=== PATIENT | female | born 1985 | race Caucasian/White ===

== ENCOUNTER 2017-05-01 20:22 | Emergency (ER) | payer MEDICAID ==
[~2017-05-01] VITALS: Ht 170.2 cm; Wt 90.0 kg
[~2017-05-01 20:22] MED LIST: MACROBID PO; NO HOME MEDS; ONDA8TAB6 PO
[2017-05-01] MEDS ORDERED: PENI500T2 PO (22:18)
[2017-05-01 22:33] VITALS: BP 146/98
== END 2017-05-01 22:36 | disposition home or self-care (01) ==
LOC: ER 20:22
DX: S02.5XXA Fracture of tooth (traumatic), initial encounter for closed fracture (principal); X58.XXXA Exposure to other specified factors, initial encounter; Y93.9 Activity, unspecified; Y92.89 Other specified places as the place of occurrence of the external cause; Y99.8 Other external cause status; Z98.890 Other specified postprocedural states; Z56.0 Unemployment, unspecified
CPT/HCPCS: 99283

== ENCOUNTER 2017-06-13 13:17 | Emergency (ER) | payer MEDICAID ==
[~2017-06-13] VITALS: Ht 5619.3 cm; Wt 88.0 kg
[2017-06-13 14:43] LABS: CLARITY,URINE CLOUDY (Clear); COLOR,URINE YELLOW (Yellow); GLUCOSE, URINE NEGATIVE (Neg); KETONES,URINE NEGATIVE (Neg); LEUKOCYTE ESTERASE ,URINE MODERATE (Neg); NITRITES, URINE POSITIVE (Neg); OCCULT BLOOD,URINE SMALL (Neg); PROTEIN,URINE 100 mg/dl (Neg); URINE HCG NEGATIVE (NEG); UROBILINOGEN,URINE 0.2 E.U/dL (0.2-1.0)
[2017-06-13] MEDS ORDERED: NITR-79 PO (14:47)
[2017-06-13] MEDS ORDERED: PHEN-716 PO (14:47)
[2017-06-13 14:51] LABS: UA COLLECTION TYPE CLN CATCH MIDSTREAM
[2017-06-13 14:52] LABS: BACTERIA,URINE 3+ /HPF (Neg); RBC,URINE 0-2 /HPF (0-2); WBC,URINE 50-100 /HPF (0-4)
[2017-06-13 14:53] LABS: MUCUS STRANDS NONE SEEN /LPF (Neg); SQUAMOUS EPITHELIAL CELL,UR FEW /LPF (FEW)
[2017-06-13 18:25] VITALS: BP 121/65
== END 2017-06-13 15:00 | disposition home or self-care (01) ==
LOC: ER 13:17
DX: N39.0 Urinary tract infection, site not specified (principal); Z56.0 Unemployment, unspecified; Z79.899 Other long term (current) drug therapy
CPT/HCPCS: 81001; 81025; 87077; 87088; 87186; 99284

== ENCOUNTER 2018-08-27 11:31 | Emergency (ER) | payer MEDICAID ==
[~2018-08-27] VITALS: Ht 170.2 cm; Wt 83.0 kg
[~2018-08-27 11:31] MED LIST changes: +NITR-79 PO; +PHEN-716 PO
--- NOTE | 2018-08-27 11:54 | NUR ---
Per pt, CBC 10 days ago "6 point something", she is scheduled for hysterectomy as PMD is concerned this is the cause of her anemia. Per pt, previous u/s has never identified fibroids, but has shown ovarian cysts.
[2018-08-27 12:49] LABS: BASOPHILS % (AUTO) 0.5 % (0-1); EOSINOPHILS % (AUTO) 0.1 % (0-6); LYMPHOCYTES # (AUTO) 1.3 X10'3 (1.1-4.8); LYMPHOCYTES % (AUTO) 20.7 % (21-51); MEAN CORPUSCULAR HEMOGLOBIN 17.6 PG (27.0-31.0); MEAN CORPUSCULAR HGB CONC 29.8 g/dL (33.0-36.5); MEAN CORPUSCULAR VOLUME 59.1 FL (78-98); MEAN PLATELET VOLUME 8.5 FL (7.4-10.4); MONOCYTES # (AUTO) 0.6 X10'3 (0-0.9); MONOCYTES % (AUTO) 9.7 % (2-12); NEUTROPHILS # (AUTO) 4.3 X10'3 (1.8-7.7); PLATELET COUNT 237 X10'3 (140-440); RED BLOOD COUNT 3.89 X10'6 (4.20-5.60); RED CELL DISTRIBUTION WIDTH 24.4 % (11.5-14.5); WHITE BLOOD COUNT 6.2 X10'3 (4.5-11.0)
[2018-08-27 12:57] LABS: HEMOGLOBIN 6.8 g/dl (12.0-16.0)
[2018-08-27 13:20] LABS: HCG SERUM QL NEGATIVE
[2018-08-27 13:30] LABS: ANISOCYTOSIS 3+; ELLIPTOCYTES FEW; HYPOCHROMASIA 3+; MICROCYTOSIS 3+; PLATELET ESTIMATE NORMAL; POLYCHROMASIA FEW; SPHEROCYTES FEW; STOMATOCYTES FEW; TEAR DROP CELLS FEW
[2018-08-27 14:00] LABS: ALANINE AMINOTRANSFERASE 21 U/L (12-78); ALBUMIN 3.9 G/DL (3.4-5.0); ALKALINE PHOSPHATASE 59 IU/L (46-116); ANION GAP 12 (8-16); ASPARTATE AMINO TRANSFERASE 8 U/L (10-37); BILIRUBIN,TOTAL 0.3 MG/DL (0.1-1.0); BLOOD UREA NITROGEN 14 MG/DL (7-18); BUN/CREATININE RATIO 16.7 (6.6-38.0); CHLORIDE 103 MMOL/L (99-107); CREATININE 0.84 MG/DL (0.40-0.90); GLUCOSE 101 MG/DL (70-104); POTASSIUM 3.5 MMOL/L (3.5-5.1); SODIUM 138 MMOL/L (135-145); TOTAL CARBON DIOXIDE 22.8 MMOL/L (24-32); TOTAL PROTEIN 7.8 G/DL (6.4-8.2); eGFR 78 ML/MIN
[2018-08-27 14:24] VITALS: BP 116/76
== END 2018-08-27 15:02 | disposition home or self-care (01) ==
LOC: ER 11:32
DX: D64.9 Anemia, unspecified (principal); N92.0 Excessive and frequent menstruation with regular cycle; Z98.890 Other specified postprocedural states; Z79.899 Other long term (current) drug therapy; Z56.0 Unemployment, unspecified
CPT/HCPCS: 36415; 80053; 84703; 85025; 86885; 86900; 86901; 99283

== ENCOUNTER 2019-01-25 04:33 | Emergency (ER) | payer MEDICAID ==
[~2019-01-25] VITALS: Ht 170.2 cm; Wt 84.0 kg
[2019-01-25] MEDS ORDERED: AMOX500C2 PO (04:43)
[2019-01-25] MEDS ORDERED: IBUP-1986 PO (04:43)
[2019-01-25] MEDS ORDERED: HYDR-3965 PO (04:43)
[2019-01-25] MEDS ORDERED: amoxicillin 250mg capsule PO ONE (04:55)
[2019-01-25 04:58] VITALS: BP 151/115
== END 2019-01-25 05:05 | disposition home or self-care (01) ==
LOC: ER 04:34
DX: K08.89 Other specified disorders of teeth and supporting structures (principal); Z98.890 Other specified postprocedural states; Z56.0 Unemployment, unspecified; Z79.899 Other long term (current) drug therapy
CPT/HCPCS: 99283

== ENCOUNTER 2019-03-04 17:13 | Emergency (ER) | payer MEDICAID ==
[~2019-03-04] VITALS: Ht 170.2 cm; Wt 86.8 kg
[~2019-03-04 17:13] MED LIST changes: +IBUP-1986 PO
[2019-03-04] MEDS ORDERED: HYDROcodone/acetaminophen 5mg/325mg tablet PO ONE (18:05)
[2019-03-04] MEDS ORDERED: ondansetron 4mg rapidly disintigrating tab PO ONE (18:05)
[2019-03-04] MEDS ORDERED: PENI500T2 PO (18:11)
[2019-03-04] MEDS ORDERED: IBUP-1984 PO (18:11)
[2019-03-04 18:49] VITALS: BP 137/76
== END 2019-03-04 18:20 | disposition home or self-care (01) ==
LOC: ER 17:15
DX: K04.7 Periapical abscess without sinus (principal); K02.9 Dental caries, unspecified; F10.99 Alcohol use, unspecified with unspecified alcohol-induced disorder; Z86.2 Personal history of diseases of the blood and blood-forming organs and certain disorders involving the immune mechanism; Z98.890 Other specified postprocedural states; Z56.0 Unemployment, unspecified; Z79.899 Other long term (current) drug therapy; Y90.9 Presence of alcohol in blood, level not specified
CPT/HCPCS: 99283

== ENCOUNTER 2019-08-18 17:29 | Emergency (ER) | payer MEDICAID ==
[~2019-08-18] VITALS: Ht 170.2 cm; Wt 88.6 kg
--- NOTE | 2019-08-18 18:13 | NUR ---
[employer] [facility] CALL [phone]
[2019-08-18 18:37] LABS: BASOPHILS % (AUTO) 1.4 % (0-1); EOSINOPHILS % (AUTO) 0.8 % (0-6); HEMATOCRIT 25.9 % (35.0-45.0); HEMOGLOBIN 7.6 g/dl (12.0-16.0); LYMPHOCYTES # (AUTO) 0.6 X10'3 (1.1-4.8); MEAN CORPUSCULAR HEMOGLOBIN 16.6 PG (27.0-31.0); MEAN CORPUSCULAR HGB CONC 29.4 g/dL (33.0-36.5); MEAN CORPUSCULAR VOLUME 56.5 FL (78-98); MEAN PLATELET VOLUME 9.1 FL (7.4-10.4); MONOCYTES # (AUTO) 0.4 X10'3 (0-0.9); MONOCYTES % (AUTO) 11.7 % (2-12); NEUTROPHILS # (AUTO) 2.3 X10'3 (1.8-7.7); NEUTROPHILS % (AUTO) 68.1 % (42-75); PLATELET COUNT 129 X10'3 (140-440); RED BLOOD COUNT 4.59 X10'6 (4.20-5.60); RED CELL DISTRIBUTION WIDTH 19.1 % (11.5-14.5); WHITE BLOOD COUNT 3.4 X10'3 (4.5-11.0)
[2019-08-18 18:42] VITALS: BP 127/75
[2019-08-18 18:50] LABS: ALANINE AMINOTRANSFERASE 13 U/L (12-78); ALBUMIN 3.8 G/DL (3.4-5.0); ALBUMIN/GLOBULIN RATIO 0.9 (1.1-1.5); ALKALINE PHOSPHATASE 82 IU/L (46-116); ANION GAP 8 (8-16); ASPARTATE AMINO TRANSFERASE 19 U/L (10-37); BILIRUBIN,TOTAL 0.3 MG/DL (0.1-1.0); BLOOD UREA NITROGEN 15 MG/DL (7-18); BUN/CREATININE RATIO 18.8 (6.6-38.0); CALCIUM 8.3 MG/DL (8.5-10.1); CHLORIDE 103 MMOL/L (99-107); GLUCOSE 77 MG/DL (70-104); POTASSIUM 3.4 MMOL/L (3.5-5.1); SODIUM 139 MMOL/L (135-145); TOTAL CARBON DIOXIDE 28.1 MMOL/L (24-32); TOTAL PROTEIN 8.1 G/DL (6.4-8.2); eGFR 82 ML/MIN
[2019-08-18] MEDS ORDERED: FERR325T28 PO (18:59)
[2019-08-18 19:31] LABS: ANISOCYTOSIS 2+; ELLIPTOCYTES FEW; HYPOCHROMASIA 1+; MICROCYTOSIS 3+; PLATELET ESTIMATE NORMAL; POLYCHROMASIA FEW; SPHEROCYTES FEW; TEAR DROP CELLS FEW
== END 2019-08-18 19:25 | disposition home or self-care (01) ==
LOC: ER 17:30
DX: D64.9 Anemia, unspecified (principal); Z98.890 Other specified postprocedural states; Z56.0 Unemployment, unspecified; Z87.440 Personal history of urinary (tract) infections
CPT/HCPCS: 36415; 80053; 85025; 86870; 86885; 86900; 86901; 86902; 86905; 99283

== ENCOUNTER 2019-10-21 12:17 | Emergency (ER) | payer MEDICAID ==
[~2019-10-21] VITALS: Ht 170.2 cm; Wt 86.0 kg
[2019-10-21 12:28] VITALS: BP 144/90
[2019-10-21] MEDS ORDERED: AMOX-422 PO (12:48)
[2019-10-21] MEDS ORDERED: HYDR-4383 PO (12:48)
== END 2019-10-21 13:30 | disposition home or self-care (01) ==
LOC: ER 12:17
DX: K02.9 Dental caries, unspecified (principal); Z98.890 Other specified postprocedural states; Z56.0 Unemployment, unspecified; Z79.899 Other long term (current) drug therapy
CPT/HCPCS: 99283